=== PATIENT | female | born 1955 | race Native Hawaiian/Other Pacific Islander ===

== ENCOUNTER → 2023-03-18 | Outpatient (CLI) | payer BC, MEDICARE | LOC: RAD 15:55 | DX: M47.816 Spondylosis without myelopathy or radiculopathy, lumbar region (principal); M43.16 Spondylolisthesis, lumbar region; M25.552 Pain in left hip ==

== ENCOUNTER 2023-06-18 11:09 | Emergency (ER) | payer MEDICARE ==
[~2023-06-18] VITALS: Ht 157.5 cm; Wt 65.0 kg
[2023-06-18] MEDS ORDERED: NS 1,000 ML IV ONE (11:30)
[2023-06-18] MEDS ORDERED: Ondansetron 4 MG/2 ML VIAL IV ONE (11:30)
[2023-06-18 11:36] LABS: BASO # 0.01 K/mm3 (0.02-0.10); EOS # 0.03 K/mm3 (0.04-0.40); EOS % 0.3 % (1.0-5.0); HEMATOCRIT 43.6 % (37.0-47.0); LYMPH# 1.65 K/mm3 (1.50-4.00); MEAN CELL VOLUME 95 fl (78-100); MEAN CORPUSCULAR HEMOGLOBIN 33 pg (27-31); MEAN CORPUSCULAR HGB CONC 34 g/dL (33-37); MEAN PLATELET VOLUME 9.2 fl (7.4-10.4); MONO # 0.44 K/mm3 (0.20-0.80); NEU # 8.02 K/mm3 (1.40-6.50); PLATELET COUNT 290 K/mm3 (130-400); RED BLOOD COUNT 4.58 M/mm3 (4.10-5.30); RED CELL DISTRIBUTION WIDTH 12.3 % (11.5-14.5); WHITE BLOOD COUNT 10.2 K/mm3 (4.8-10.8)
[2023-06-18] MEDS ORDERED: ZYRTEC ALLERGY10 MG PO (11:36)
[2023-06-18 11:43] LABS: ALBUMIN 4.7 g/dL (3.4-4.8)
[2023-06-18 11:45] LABS: CALCIUM 9.9 mg/dL (8.3-10.5)
[2023-06-18 11:48] LABS: TOTAL BILIRUBIN 1.5 mg/dL (0.2-1.2)
[2023-06-18] MEDS ORDERED: Iohexol 300 - 100 ML VIAL IV ONE (12:02)
[2023-06-18] MEDS ORDERED: ZOFRAN ODT4 MG PO (13:17)
[2023-06-18] MEDS ORDERED: MAGIC MOUTHWASH1 M1 PO (13:17)
[2023-06-18 13:30] VITALS: BP 135/90
== END 2023-06-18 13:30 | disposition home or self-care (01) ==
LOC: ED 11:09
PROVIDERS: Family Medicine
DX: J39.9 Disease of upper respiratory tract, unspecified (principal); F15.23 Other stimulant dependence with withdrawal
CPT/HCPCS: J2405; J7030; Q9967

== ENCOUNTER → 2024-03-22 | Outpatient (CLI) | payer MEDICARE ==
[~2024-03-22] MED LIST: MAGIC MOUTHWASH1 M1 PO; ZOFRAN ODT4 MG PO; ZYRTEC ALLERGY10 MG PO
== END ==
LOC: RAD 10:21 → MAMMO 10:30
DX: Z13.820 Encounter for screening for osteoporosis (principal); M81.0 Age-related osteoporosis without current pathological fracture